=== PATIENT | male | born 1960 | race African-American/Black ===

== ENCOUNTER 2017-10-26 20:20 | Emergency (ER) | payer OTHER ==
[2017-10-26] MEDS ORDERED: Nitroglycerin 0.4 MG TAB (25 Tab Bottle) ONE (20:47)
[2017-10-26 21:06] LABS: INR-International Normal Ratio 1.1; Prothrombin Time 14.1 SEC (12.0-14.7)
[2017-10-26 21:08] LABS: D-Dimer Test 0.4 *mcg/mL (0.27-0.43)
[2017-10-26 21:12] LABS: Hemoglobin 14.9 g/dL (14.0-18.0); Mean Corpuscular HGB CONC 31.9 g/dL (32.0-36.0); Mean Corpuscular Hemoglobin 26.6 pg (27.0-31.0); Mean Corpuscular Volume 83.5 fl (80.0-94.0); RBC Distribution Width 12.6 % (11.5-14.5); Red Blood Cell (RBC) Count 5.61 mill/uL (4.70-6.10); White Blood Cell (WBC) Count 11.1 thou/uL (4.8-10.8)
[2017-10-26 21:26] LABS: #Basophils 0.1 thou/uL (0.0-0.2); #Eosinphils 0.5 thou/uL (0.0-0.7); #Lymphocytes 2.2 thou/uL (1.20-3.40); #Monocytes 0.9 thou/uL (0.11-0.59); #Neutrophils 7.5 thou/uL (1.40-6.50); %Basophils 0.7 % (0.0-1.0); %Eosinophils 4.6 % (0.0-10.0); %Lymphocytes 19.3 % (21.0-51.0); %Monocytes 7.8 % (0.0-10.0); %Neutrophils 67.6 % (42.0-75.0); CKMB 2.4 ng/mL (0-6.6); Mean Platelet Volume 8.9 fL (7.4-10.4); PLT Morphology Comment Appears Adequate; Platelet Count 174 thou/uL (130-400); RBC Morphology Normal; Troponin I Less than 0.010 ng/mL (< 0.028)
[2017-10-26 21:38] LABS: Chloride 105 mmol/L (98-107); Potassium 4.5 mmol/L (3.5-5.1); Sodium 139 mmol/L (136-145)
[2017-10-26 21:39] LABS: Calcium 9.7 mg/dL (7.8-10.44)
[2017-10-26 21:40] LABS: Globulin 3.8 g/dL (2.4-3.5); Glucose 148 mg/dL (70-105); Protein, Total 7.8 g/dL (6.0-8.3)
[2017-10-26 21:41] LABS: Anion Gap 15 mmol/L (10-20); Carbon Dioxide 24 mmol/L (22-29)
[2017-10-26 21:42] LABS: Alkaline Phosphatase 62 U/L (40-150); Bilirubin, Total 0.4 mg/dL (0.2-1.2)
[2017-10-26 21:43] LABS: Calc. Creatinine Clearance 0 mL/min (70-130); Estimated GFR-MDRD 81
[2017-10-26 21:44] LABS: BUN (Urea Nitrogen) 17 mg/dL (8.4-25.7)
--- NOTE | 2017-10-26 21:44 | RAD ---
RADIOGRAPH CHEST 1 VIEW: Date: 10/26/17 Time: 9:07 p.m. HISTORY: 57-year-old male with acute chest pain. COMPARISON: None. FINDINGS: Lungs are hypoinflated. There are horizontally oriented plate-like pulmonary densities at the bilater al lung bases. The cardiac shadow is partially obscured. Ectasia and tortuosity of the thoracic aorta . No consolidation of upper lobes. No pneumothorax. No effacement of lateral costophrenic angles. IMPRESSION: 1. Bibasilar subsegmental atelectasis versus pulmonary scarring. 2. No other potentially acute pulmonary findings. 3. Ectasia and tortuosity of thoracic aorta. SHARLA [] POS: JULIANA
[2017-10-26 21:45] LABS: AST (SGOT) 23 U/L (5-34)
[2017-10-26 21:46] LABS: ALT (SGPT) 13 U/L (8-55)
[2017-10-26 22:08] LABS: Bilirubin Negative (Negative); Blood, Urine Negative (Negative); Clarity CLEAR (Clear); Glucose, Urine (Dipstick) Negative (Negative); Leukocyte Negative (Negative); Nitrite Negative (Negative); Protein, Urine (Dipstick) Negative (Neg-Trace); Specific Gravity, Urine 1.017 (1.002-1.036); pH, Urine 7.5 (5.0-9.0)
[2017-10-26] MEDS ORDERED: Morphine 4 MG/ML VIAL ONE (23:02)
[2017-10-27 00:18] LABS: Troponin I Less than 0.010 ng/mL (< 0.028)
--- NOTE | 2017-10-29 11:50 | EKG ---
Test Reason : Blood Pressure : / mmHG Vent. Rate : 112 BPM Atrial Rate : 112 BPM P-R Int : 140 ms QRS Dur : 096 ms QT Int : 340 ms P-R-T Axes : 069 -07 036 degrees QTc Int : 464 ms Sinus tachycardia Possible Left atrial enlargement No STEMI Borderline ECG Confirmed by JEFFERY FLORES M.D. ([id number]), editor managing newspaper [employer] ([id number]) on 10/29/2017 11:49:50 AM Referred By: Confirmed By:JEFFERY FLORES M.D.
== END 2017-10-27 01:15 | disposition home or self-care (01) ==
LOC: ERS 20:20
DX: R07.89 Other chest pain (principal)
CPT/HCPCS: 36415; 71045; 80053; 81003; 82553; 84484; 85025; 85379; 85610; 93005; 96361; 96374; J2270

== ENCOUNTER 2019-06-15 06:59 | Outpatient (CLI) | payer OTHER ==
--- NOTE | 2019-06-15 09:26 | RAD ---
LEFT KNEE 4 VIEWS: INDICATION: Prior surgery, with pain. FINDINGS: There is a single metallic screw traversing the lateral condyle of the distal femur. Moderate osteoa rthritis is present with joint compartment narrowing and osteophytosis. Mild joint capsular distenti on. IMPRESSION: Postoperative left knee without acute hardware complication. There is moderate osteoarthritis. POS: C
--- NOTE | 2019-06-15 09:50 | RAD ---
4 VIEW RIGHT KNEE: Date: 06/15/19 INDICATION: History of prior surgery with pain. FINDINGS: There are two metallic michael, one traversing the lateral condyle of the distal femur and the other situated at the lateral tibial plateau. Mild osteophytosis is present. No fracture. Mild joint capsul ar distention. There is chronic heterotopic density adjacent to the lateral femoral condyle which cou ld relate to sequelae from prior struma or possibly sequelae of avulsion injury related to the latera l collateral ligamentous complex. IMPRESSION: Postoperative right knee without evidence of acute osseous abnormality. POS: C
== END 2019-06-15 07:00 | disposition home or self-care (01) ==
LOC: BICRAD 06:59
PROVIDERS: ATTEND Family Medicine
DX: M25.561 Pain in right knee (principal); M25.562 Pain in left knee; M17.12 Unilateral primary osteoarthritis, left knee; Z98.890 Other specified postprocedural states

== ENCOUNTER 2019-12-15 19:30 | Outpatient (CLI) | payer OTHER | END 2019-12-15 19:31 | disposition home or self-care (01) | LOC: SLEEPLAB 19:30 | PROVIDERS: ATTEND Family Medicine | DX: G47.33 Obstructive sleep apnea (adult) (pediatric) (principal); R51 Headache; E66.9 Obesity, unspecified; R06.83 Snoring; G47.00 Insomnia, unspecified; G47.10 Hypersomnia, unspecified; E11.9 Type 2 diabetes mellitus without complications; Z68.41 Body mass index [BMI] 40.0-44.9, adult | CPT/HCPCS: 95811 ==

== ENCOUNTER 2021-09-04 01:11 | Emergency (ER) | payer OTHER ==
[2021-09-04] MEDS ORDERED: Ketorolac Tromethamine 30 MG/ML VIAL ONE (03:31)
== END 2021-09-04 03:56 | disposition home or self-care (01) ==
LOC: ERS 01:11
DX: M25.512 Pain in left shoulder (principal); W17.89XA Other fall from one level to another, initial encounter
CPT/HCPCS: 96372; 99283; J1885

== ENCOUNTER 2023-02-08 19:45 | Inpatient (IN) | payer OTHER, SELFPAY ==
[~2023-02-08 19:45] MED LIST: Iopamidol-370 76% 500 ML MDV (1 ML CHARGE) ONE
[2023-02-08] MEDS ORDERED: Ondansetron PF 4 MG/2 ML Vial ONE (20:15)
[2023-02-08] MEDS ORDERED: Morphine 4 MG/ML VIAL ONE (20:15)
[2023-02-08] MEDS ORDERED: Cefepime 2 GM VIAL ONE (20:15)
[2023-02-08 20:16] LABS: #Basophils 0.1 thou/uL (0.0-0.2); #Eosinphils 0.4 thou/uL (0.0-0.7); #Monocytes 0.8 thou/uL (0.11-0.59); #Neutrophils 9.7 thou/uL (1.40-6.50); %Basophils 0.7 % (0.0-1.0); %Lymphocytes 14.9 % (21.0-51.0); %Monocytes 6.2 % (0.0-10.0); %Neutrophils 74.8 % (42.0-75.0); Hemoglobin 14.2 g/dL (14.0-18.0); Mean Corpuscular HGB CONC 31.3 g/dL (32.0-36.0); Mean Corpuscular Hemoglobin 26.1 pg (27.0-31.0); Mean Corpuscular Volume 83.1 fl (78.0-98.0); Mean Platelet Volume 10.7 fL (7.4-10.4); Platelet Count 286 10x3/uL (130-400); RBC Distribution Width 13.8 % (11.5-14.5); Red Blood Cell (RBC) Count 5.45 mill/uL (4.70-6.10); White Blood Cell (WBC) Count 12.9 10x3/uL (4.8-10.8)
[2023-02-08 20:24] LABS: Bacteria/HPF None Seen HPF (None Seen); Bilirubin Negative (Negative); Blood, Urine 1+ (Negative); CAUTI Indications for Culture Fever or rigors; Clarity Clear (Clear); Glucose, Urine (Dipstick) Normal (Negative); Ketone, Urine Negative (Negative); Leukocyte Negative Leu/uL (Negative); Nitrite Negative (Negative); Protein, Urine (Dipstick) Negative (Neg-Trace); RBC/HPF 0-3 HPF (0-3); Specific Gravity, Urine 1.016 (1.002-1.036); Squamous Epithelial None Seen HPF (0-3); Urobilinogen Normal mg/dL (Less than 2); WBC/HPF 0-3 HPF (0-3); pH, Urine 5.5 (5.0-9.0)
[2023-02-08 20:25] LABS: Sperm/HPF Rare HPF (None Seen); Urine Culture Reflex No No
[2023-02-08 20:39] LABS: ALT (SGPT) 14 U/L (8-55); AST (SGOT) 15 U/L (5-34); Albumin 4.2 g/dL (3.5-5.0); Alkaline Phosphatase 66 U/L (40-110); Anion Gap 15 mmol/L (10-20); BUN (Urea Nitrogen) 15 mg/dL (8.4-25.7); Bilirubin, Total 0.4 mg/dL (0.2-1.2); Calc. Creatinine Clearance 0 mL/min (70-130); Calcium 9.4 mg/dL (7.8-10.44); Carbon Dioxide 21 mmol/L (22-29); Chloride 105 mmol/L (98-107); Estimated GFR 70; Globulin 3.9 g/dL (2.4-3.5); Glucose 159 mg/dL (70-105); Potassium 3.7 mmol/L (3.5-5.1); Protein, Total 8.1 g/dL (6.0-8.3); Sodium 137 mmol/L (136-145)
[2023-02-08] MEDS ORDERED: Acetaminophen 325 MG TAB ONE (21:22)
[2023-02-08] MEDS ORDERED: Acetaminophen 650 MG Suppository PR PRN (22:07)
[2023-02-08] MEDS ORDERED: Ondansetron PF 4 MG/2 ML Vial IVP PRN (22:07)
[2023-02-08] MEDS ORDERED: Ondansetron ODT 4 MG TAB PO PRN (22:07)
[2023-02-08] MEDS ORDERED: Piperacillin/Tazobactam 3.375 GM in Sodium Chloride 0.9% 100 ML IVPB SCH (22:30)
[2023-02-08] MEDS ORDERED: diphenhydrAMINE 50 MG/ML VIAL ONE (22:48)
[2023-02-08 23:14] LABS: Lactic Acid 0.8 mmol/L (0.5-2.2)
[2023-02-08 23:55] VITALS: BMI 38.7
[2023-02-09] MEDS: Sodium Chloride 0.9% 1,000 ML IV SCH ×4 (00:04→23:33)
[2023-02-09] MEDS ORDERED: Piperacillin/Tazobactam 3.375 GM in Sodium Chloride 0.9% 100 ML IVPB SCH (02:00)
[2023-02-09 04:47] LABS: #Basophils 0.1 thou/uL (0.0-0.2); #Eosinphils 0.4 thou/uL (0.0-0.7); #Monocytes 1.2 thou/uL (0.11-0.59); #Neutrophils 7.4 thou/uL (1.40-6.50); %Basophils 0.9 % (0.0-1.0); %Eosinophils 3.9 % (0.0-10.0); %Monocytes 10.8 % (0.0-10.0); Hemoglobin 12.9 g/dL (14.0-18.0); Mean Corpuscular HGB CONC 30.6 g/dL (32.0-36.0); Mean Corpuscular Hemoglobin 25.9 pg (27.0-31.0); Mean Corpuscular Volume 84.6 fl (78.0-98.0); Mean Platelet Volume 10.5 fL (7.4-10.4); Platelet Count 248 10x3/uL (130-400); RBC Distribution Width 13.9 % (11.5-14.5); Red Blood Cell (RBC) Count 4.99 mill/uL (4.70-6.10); White Blood Cell (WBC) Count 11.1 10x3/uL (4.8-10.8)
[2023-02-09 04:51] LABS: Hemoglobin A1c 5.9 % (4.0-6.0)
[2023-02-09 05:13] LABS: Anion Gap 11 mmol/L (10-20); BUN (Urea Nitrogen) 14 mg/dL (8.4-25.7); Calc. Creatinine Clearance 122 mL/min (70-130); Calcium 8.4 mg/dL (7.8-10.44); Carbon Dioxide 24 mmol/L (22-29); Chloride 109 mmol/L (98-107); Estimated GFR 81; Glucose 99 mg/dL (70-105); Potassium 3.5 mmol/L (3.5-5.1); Sodium 140 mmol/L (136-145)
[2023-02-09] MEDS: Piperacillin/Tazobactam 3.375 GM in Sodium Chloride 0.9% 100 ML IVPB SCH ×3 (06:24→21:10)
[2023-02-09] MEDS ORDERED: VANCOMYCIN 1.25 GM/250 ML BAG 1.25 GM in Premix Bag 1 BAG IVPB SCH (09:00)
[2023-02-09] MEDS: Acetaminophen 325 MG TAB PO PRN (20:17)
[2023-02-10 04:53] LABS: #Basophils 0.1 thou/uL (0.0-0.2); #Eosinphils 0.6 thou/uL (0.0-0.7); #Monocytes 1.2 thou/uL (0.11-0.59); #Neutrophils 8.9 thou/uL (1.40-6.50); %Basophils 0.6 % (0.0-1.0); %Eosinophils 4.6 % (0.0-10.0); %Lymphocytes 15.5 % (21.0-51.0); %Monocytes 9.5 % (0.0-10.0); %Neutrophils 69.3 % (42.0-75.0); Hemoglobin 13.2 g/dL (14.0-18.0); Mean Corpuscular HGB CONC 31.4 g/dL (32.0-36.0); Mean Corpuscular Hemoglobin 26.5 pg (27.0-31.0); Mean Corpuscular Volume 84.2 fl (78.0-98.0); Mean Platelet Volume 10.5 fL (7.4-10.4); Platelet Count 256 10x3/uL (130-400); RBC Distribution Width 13.7 % (11.5-14.5); Red Blood Cell (RBC) Count 4.99 mill/uL (4.70-6.10); White Blood Cell (WBC) Count 12.9 10x3/uL (4.8-10.8)
[2023-02-10 05:20] LABS: Anion Gap 13 mmol/L (10-20); BUN (Urea Nitrogen) 11 mg/dL (8.4-25.7); Calc. Creatinine Clearance 124 mL/min (70-130); Calcium 8.9 mg/dL (7.8-10.44); Carbon Dioxide 23 mmol/L (22-29); Chloride 107 mmol/L (98-107); Estimated GFR 82; Glucose 109 mg/dL (70-105); Potassium 3.7 mmol/L (3.5-5.1); Sodium 139 mmol/L (136-145)
[2023-02-10] MEDS: Piperacillin/Tazobactam 3.375 GM in Sodium Chloride 0.9% 100 ML IVPB SCH ×3 (05:32→21:01)
[2023-02-10] MEDS: Sodium Chloride 0.9% 1,000 ML IV SCH ×2 (06:52→14:06)
[2023-02-10] MEDS: Acetaminophen 325 MG TAB PO PRN (08:23)
[2023-02-10] MEDS ORDERED: VANCOMYCIN IVPB PRN (12:13)
[2023-02-10] MEDS: VANCOMYCIN 1.25 GM/250 ML BAG 1.25 GM in Premix Bag 1 BAG IVPB SCH (14:05)
[2023-02-10] MEDS ORDERED: Vancomycin 1 GM in Premix Bag 1 BAG IVPB SCH (21:00)
[2023-02-11] MEDS: VANCOMYCIN 1.25 GM/250 ML BAG 1.25 GM in Premix Bag 1 BAG IVPB SCH ×2 (01:15→13:32)
[2023-02-11] MEDS: Piperacillin/Tazobactam 3.375 GM in Sodium Chloride 0.9% 100 ML IVPB SCH ×3 (05:30→21:04)
[2023-02-11] MEDS: Sodium Chloride 0.9% 1,000 ML IV SCH ×2 (05:35→06:51)
[2023-02-11 06:12] LABS: #Basophils 0.1 thou/uL (0.0-0.2); #Eosinphils 0.7 thou/uL (0.0-0.7); #Monocytes 0.9 thou/uL (0.11-0.59); %Basophils 0.7 % (0.0-1.0); %Eosinophils 7.5 % (0.0-10.0); %Lymphocytes 21.5 % (21.0-51.0); %Neutrophils 61.1 % (42.0-75.0); Hemoglobin 12.8 g/dL (14.0-18.0); Mean Corpuscular HGB CONC 31.2 g/dL (32.0-36.0); Mean Corpuscular Hemoglobin 26.4 pg (27.0-31.0); Mean Corpuscular Volume 84.7 fl (78.0-98.0); Mean Platelet Volume 10.5 fL (7.4-10.4); Platelet Count 247 10x3/uL (130-400); RBC Distribution Width 13.6 % (11.5-14.5); Red Blood Cell (RBC) Count 4.84 mill/uL (4.70-6.10); White Blood Cell (WBC) Count 9.8 10x3/uL (4.8-10.8)
[2023-02-11 06:42] LABS: Anion Gap 11 mmol/L (10-20); BUN (Urea Nitrogen) 10 mg/dL (8.4-25.7); Calc. Creatinine Clearance 140 mL/min (70-130); Calcium 8.5 mg/dL (7.8-10.44); Carbon Dioxide 23 mmol/L (22-29); Chloride 107 mmol/L (98-107); Estimated GFR 95; Glucose 105 mg/dL (70-105); Potassium 3.4 mmol/L (3.5-5.1); Sodium 138 mmol/L (136-145)
[2023-02-11] MEDS ORDERED: Potassium Chloride 20 MEQ TAB PO SCH (08:15)
[2023-02-11] MEDS ORDERED: Betamethasone 0.1% Cream 15 GM TUBE TOP PRN (13:21)
[2023-02-12 00:42] LABS: Vancomycin, Trough 8.5 ug/mL
[2023-02-12] MEDS: VANCOMYCIN 1.25 GM/250 ML BAG 1.25 GM in Premix Bag 1 BAG IVPB SCH ×2 (01:05→10:53)
[2023-02-12 05:36] LABS: #Basophils 0.1 thou/uL (0.0-0.2); #Eosinphils 0.7 thou/uL (0.0-0.7); #Monocytes 0.7 thou/uL (0.11-0.59); #Neutrophils 4.2 thou/uL (1.40-6.50); %Eosinophils 9.4 % (0.0-10.0); %Lymphocytes 24.9 % (21.0-51.0); %Monocytes 9.6 % (0.0-10.0); %Neutrophils 54.8 % (42.0-75.0); Hemoglobin 13.2 g/dL (14.0-18.0); Mean Corpuscular HGB CONC 31.2 g/dL (32.0-36.0); Mean Corpuscular Hemoglobin 26.3 pg (27.0-31.0); Mean Corpuscular Volume 84.3 fl (78.0-98.0); Mean Platelet Volume 10.4 fL (7.4-10.4); Platelet Count 275 10x3/uL (130-400); RBC Distribution Width 13.5 % (11.5-14.5); Red Blood Cell (RBC) Count 5.02 mill/uL (4.70-6.10); White Blood Cell (WBC) Count 7.6 10x3/uL (4.8-10.8)
[2023-02-12 05:58] LABS: Anion Gap 12 mmol/L (10-20); BUN (Urea Nitrogen) 9 mg/dL (8.4-25.7); Calc. Creatinine Clearance 134 mL/min (70-130); Calcium 8.9 mg/dL (7.8-10.44); Carbon Dioxide 23 mmol/L (22-29); Chloride 107 mmol/L (98-107); Estimated GFR 90; Glucose 104 mg/dL (70-105); Potassium 3.7 mmol/L (3.5-5.1); Sodium 138 mmol/L (136-145)
[2023-02-12] MEDS: Piperacillin/Tazobactam 3.375 GM in Sodium Chloride 0.9% 100 ML IVPB SCH (06:07)
[2023-02-12 11:43] VITALS: BP 138/85; TEMP 97.9
== END 2023-02-12 13:35 | disposition home health service (06) | DRG 872 ==
LOC: ERS 19:45 → 2NO 22:47 → SURG A 02-10 22:04
PROVIDERS: ADMIT Student in an Organized Health Care Education/Training Program; ATTEND Internal Medicine
PROC: 5A09457 Assistance with Respiratory Ventilation, 24-96 Consecutive Hours, Continuous Positive Airway Pressure (ICD-10-PCS; principal; 2023-02-08)
PROC: 3E03329 Introduction of Other Anti-infective into Peripheral Vein, Percutaneous Approach (ICD-10-PCS; 2023-02-08)
DX: A41.9 Sepsis, unspecified organism (principal); L03.317 Cellulitis of buttock; I10 Essential (primary) hypertension; G47.30 Sleep apnea, unspecified; K80.20 Calculus of gallbladder without cholecystitis without obstruction; L30.9 Dermatitis, unspecified; R65.20 Severe sepsis without septic shock; Z98.890 Other specified postprocedural states
CPT/HCPCS: 36415; 74177; 80048; 80053; 80202; 81001; 83036; 83605; 85025; 87040; 87070; 87086; 87205; 93005; 94660; 96365; 96375; J0692; J1200; J2270; J2405; J2543; J3370; J3490; J7030; J7050; Q9967

== ENCOUNTER 2023-04-07 11:53 | Emergency (ER) | payer SELFPAY ==
[2023-04-07 12:40] LABS: #Basophils 0.1 thou/uL (0.0-0.2); #Eosinphils 0.2 thou/uL (0.0-0.7); #Monocytes 0.5 thou/uL (0.11-0.59); #Neutrophils 4.5 thou/uL (1.40-6.50); %Eosinophils 3.4 % (0.0-10.0); %Monocytes 7.2 % (0.0-10.0); %Neutrophils 63.3 % (42.0-75.0); Hematocrit 45.1 % (42.0-52.0); Hemoglobin 13.8 g/dL (14.0-18.0); Mean Corpuscular HGB CONC 30.6 g/dL (32.0-36.0); Mean Corpuscular Hemoglobin 26.2 pg (27.0-31.0); Mean Corpuscular Volume 85.6 fl (78.0-98.0); Mean Platelet Volume 10.4 fL (7.4-10.4); Platelet Count 288 10x3/uL (130-400); RBC Distribution Width 14.3 % (11.5-14.5); Red Blood Cell (RBC) Count 5.27 mill/uL (4.70-6.10); White Blood Cell (WBC) Count 7.1 10x3/uL (4.8-10.8)
[2023-04-07 13:03] LABS: ALT (SGPT) 12 U/L (8-55); AST (SGOT) 15 U/L (5-34); Albumin 3.9 g/dL (3.5-5.0); Alkaline Phosphatase 63 U/L (40-110); Anion Gap 10 mmol/L (10-20); BUN (Urea Nitrogen) 13 mg/dL (8.4-25.7); Bilirubin, Total 0.4 mg/dL (0.2-1.2); CK (CPK) 177 U/L (30-200); Calc. Creatinine Clearance 0 mL/min (70-130); Calcium 9.2 mg/dL (7.8-10.44); Carbon Dioxide 26 mmol/L (22-29); Chloride 106 mmol/L (98-107); Estimated GFR 98; Glucose 105 mg/dL (70-105); Potassium 4.4 mmol/L (3.5-5.1); Protein, Total 6.9 g/dL (6.0-8.3); Sodium 138 mmol/L (136-145)
[2023-04-07 13:07] LABS: Troponin I Less than 0.010 ng/mL (< 0.028)
[2023-04-07] MEDS ORDERED: Meclizine HCl 25 MG TAB ONE (13:36)
== END 2023-04-07 14:57 | disposition home or self-care (01) ==
LOC: ERS 11:53
DX: R42 Dizziness and giddiness (principal)
CPT/HCPCS: 36415; 70450; 80053; 82550; 83735; 84484; 85025; 93005; 94760

== ENCOUNTER 2023-07-10 16:21 | Emergency (ER) | payer BC, SELFPAY ==
[2023-07-10] MEDS ORDERED: Ketorolac Tromethamine 30 MG/ML VIAL ONE (19:10)
== END 2023-07-10 19:29 | disposition home or self-care (01) ==
LOC: ERS 16:21
DX: S83.91XA Sprain of unspecified site of right knee, initial encounter (principal); M77.8 Other enthesopathies, not elsewhere classified; X50.0XXA Overexertion from strenuous movement or load, initial encounter
CPT/HCPCS: 96372; J1885

== ENCOUNTER 2025-01-31 12:12 | Day surgery (SDC) | payer OTHER ==
[2025-01-30 11:19] VITALS: BMI 39.0
[2025-01-31] MEDS ORDERED: Bupivacaine 0.25% HCL 30 ML VIAL ONE (14:47)
[2025-01-31] MEDS ORDERED: EPINEPHrine 1 MG/ML VIAL ONE (14:47)
[2025-01-31] MEDS ORDERED: Lidocaine 1% PF 5 ML VIAL ONE (14:52)
[2025-01-31] MEDS ORDERED: fentaNYL PF 100 MCG/2 ML SYRINGE ONE (14:52)
[2025-01-31] MEDS ORDERED: Ondansetron PF 4 MG/2 ML Vial ONE (14:52)
[2025-01-31] MEDS ORDERED: PROPOFOL 20 ML ONE (14:52)
[2025-01-31] MEDS ORDERED: CEFAZOLIN 2 GM VIAL ONE (14:59)
[2025-01-31] MEDS ORDERED: Midazolam HCl 2 mg/2 ml Vial ONE (15:02)
[2025-01-31] MEDS ORDERED: PHENYLEPHRINE-NS 100 MCG/ML 10 ML SYRINGE ONE (15:37)
[2025-01-31] MEDS ORDERED: Albuterol HFA (OR) 200 PUFF INH ONE (16:03)
[2025-01-31] MEDS ORDERED: HYDROcodone/Acetaminophen 5/325 mg Tablet ONE ×2 (16:29)
== END 2025-01-31 20:06 | disposition home or self-care (01) ==
LOC: SDC 12:12
PROVIDERS: ATTEND Surgery
PROC: 0HB6XZZ Excision of Back Skin, External Approach (ICD-10-PCS; principal; 2025-01-31)
PROC: 0JBM0ZZ Excision of Left Upper Leg Subcutaneous Tissue and Fascia, Open Approach (ICD-10-PCS; principal; 2025-01-31)
DX: D17.24 Benign lipomatous neoplasm of skin and subcutaneous tissue of left leg (principal); L72.0 Epidermal cyst; G47.33 Obstructive sleep apnea (adult) (pediatric)
CPT/HCPCS: 88304; A6258; J0171; J0665; J2250; J2405; J2704